=== PATIENT | male | born 1960 | race Caucasian/White ===

== ENCOUNTER 2019-12-08 13:58 | Emergency (ER) | payer MEDICARE, MEDICAID ==
--- NOTE | 2019-12-08 14:25 | EDM.PDOC ---
ED HPI GENERAL MEDICAL PROBLEM - General Chief Complaint: Lower Extremity Injury/Pain Stated Complaint: KNEE/JOINT PAIN Time Seen by Provider: 12/08/19 14:10 Source of Information: Reports: Patient, RN, RN Notes Reviewed History Limitations: Reports: No Limitations - History of Present Illness INITIAL COMMENTS - FREE TEXT/NARRATIVE: Pt presents to ER with c/o of left knee pain. Pt states he has been doctoring at [facility] orthopedic clinic in because his "goes out". He state he went a few months ago and got an injection into the left knee and it maybe helped a little for a while, but then it started going out again and he was too busy to go back to the ortho. clinic. Now he comes to the ER to see what can be done. He states the left knee is "out" and is locked, but he is displaying a limited ROM as he is providing the history. Denies any fall or injury. Onset: Today Duration: Chronic, Recurring Location: Reports: Lower Extremity, Left Quality: Reports: Same as Previous Episode Severity: Severe Improves with: Reports: Immobilization Worsens with: Reports: Movement Associated Symptoms: Reports: No Other Symptoms Left Knee Pain Score (Numeric/FACES): 10 - Related Data Allergies Allergy/AdvReac Type Severity Reaction Status Date / Time No Known Allergies Allergy Verified 12/08/19 14:13 Home Meds: Home Meds DULoxetine [Cymbalta] 60 mg PO DAILY 12/08/19 [History] Pantoprazole [ProTONIX] 40 mg PO DAILY 12/08/19 [History] Propranolol [Inderal LA 24 Hr] 80 mg PO DAILY 12/08/19 [History] atorvaSTATin [Lipitor] 40 mg PO BEDTIME 12/08/19 [History] clonazePAM [Clonazepam] 1 mg PO DAILY 12/08/19 [History] lisinopriL [Lisinopril] 5 mg PO DAILY 12/08/19 [History] metFORMIN HCl [Metformin HCl] 1,000 mg PO BID 12/08/19 [History] Past Medical History Cardiovascular History: Reports: Hypertension Musculoskeletal History: Reports: Osteoarthritis, Other (See Below) (Chronic left knee pain) Neurological History: Reports: Neuropathy, Diabetic Endocrine/Metabolic History: Reports: Diabetes, Type II Social & Family History - Family History Family Medical History: Noncontributory Review of Systems - Review of Systems Review Of Systems: Comprehensive ROS is negative, except as noted in HPI. ED EXAM, GENERAL - Physical Exam Exam: See Below Exam Limited By: No Limitations General Appearance: Alert, No Apparent Distress Respiratory/Chest: No Respiratory Distress Cardiovascular: Normal Peripheral Pulses Extremities: No Pedal Edema, Normal Capillary Refill, Limited Range of Motion (Left knee held in position of comfort at 30 degrees flexion, full extension, pain with ROM, but flexes to 60 degrees.), Other (Left knee with tenderness anteriorly, and medially. No visible swelling, bruising, or deformity. Pt does not tolerate pain well enough to access ACL with exam.). No: Joint Swelling, Increased Warmth, Redness Neurological: Alert, Oriented, No Motor/Sensory Deficits Psychiatric: Normal Mood Skin Exam: Warm, Dry, Intact, Normal Color, No Rash Course - Vital Signs Last Recorded V/S: Last Vital Signs Temp 97.6 F 12/08/19 14:15 Pulse 76 12/08/19 14:15 Resp 18 12/08/19 14:15 BP 108/88 12/08/19 14:15 Pulse Ox 97 12/08/19 14:15 - Orders/Labs/Meds Orders: Active Orders 24 hr Category Date Time Status Immobilizer [RC] ASDIRECTED Care 12/08/19 14:33 Ordered Knee 3V Lt [CR] Urgent Exams 12/08/19 14:10 Taken DME for Discharge [COMM] Routine Oth 12/08/19 14:34 Ordered - Radiology Interpretation Free Text/Narrative:: XR Left Knee: no acute fracture or dislocation, see Rad. report. Departure - Departure Time of Disposition: 14:36 Disposition: Home, Self-Care 01 Condition: Good Clinical Impression: Knee derangement syndrome Qualifiers: Laterality: left Qualified Code(s): M23.92 - Unspecified internal derangement of left knee - Discharge Information *PRESCRIPTION DRUG MONITORING PROGRAM REVIEWED*: No *COPY OF PRESCRIPTION DRUG MONITORING REPORT IN PATIENT ELENA: No Instructions: How to Use a Knee Immobilizer, [id number], Chronic Knee Pain, Adult, [id number] Forms: ED Department Discharge Additional Instructions: Rx: [place] 5mg/325mg Wear knee immobilizer and use crutches as needed for comfort. Follow up with your orthopedic surgeon at the first available appointment. Sepsis Event Note (ED) - Focused Exam Vital Signs: Vital Signs Temp Pulse Resp BP Pulse Ox 12/08/19 14:15 97.6 F 76 18 108/88 97 - My Orders Last 24 Hours: My Active Orders 12/08/19 14:10 Knee 3V Lt [CR] Urgent 12/08/19 14:33 Immobilizer [RC] ASDIRECTED 12/08/19 14:34 DME for Discharge [COMM] Routine - Assessment/Plan Last 24 Hours: My Active Orders 12/08/19 14:10 Knee 3V Lt [CR] Urgent 12/08/19 14:33 Immobilizer [RC] ASDIRECTED 12/08/19 14:34 DME for Discharge [COMM] Routine
--- NOTE | 2019-12-08 14:39 | CR ---
EXAMINATION: Knee 3V Lt SEX: Male AGE: 59 years CLINICAL HISTORY: 59-year-old male injured Left knee. Interpretation: Reactive sclerosis anterior surface patella. No knee joint effusion, pathologic skeletal lesion, left knee fracture, dislocation or radiopaque loose joint body. Symmetric spacing normal-appearing knee joint without arthritic degenerative change. No bony eburnation or hypertrophic spur formation. No foreign bodies. CONCLUSION: No fracture, dislocation or joint effusion left knee.
== END 2019-12-08 14:45 | disposition home or self-care (01) ==
LOC: DL.ED 13:58
DX: M23.92 Unspecified internal derangement of left knee (principal); I10 Essential (primary) hypertension; E11.40 Type 2 diabetes mellitus with diabetic neuropathy, unspecified; Z79.899 Other long term (current) drug therapy
CPT/HCPCS: 73562-LT; 99283-25